=== PATIENT | female | born 1990 | race Caucasian/White ===

== ENCOUNTER 2021-10-06 01:34 | Inpatient (IN) ==
[~2021-10-06 01:34] MED LIST: Azithromycin 500 MG in 0.9 % Sodium Chloride 250 ML IVPB PRN; Famotidine 20 MG/2 ML VIAL IVP PRN; Lidocaine 1% 20 ML MDV INFILT PRN; Metoclopramide 10 MG/2 ML VIAL IVP PRN; Naloxone 0.4 MG/ML INJ IVP PRN; Ondansetron 4 MG/2 ML VIAL IVP PRN
[2021-10-06 02:29] LABS: Amphetamine Screen,Urine Negative ng/mL (Cutoff=1000); Barbiturate Screen,Urine Negative ng/mL (Cutoff=200); Benzodiazepines Screen,Urine Negative ng/mL (Cutoff=200); Cannabinoid Screen,Urine Negative ng/mL (Cutoff = 50); Cocaine Screen,Urine Negative ng/mL (Cutoff= 300); Opiate Screen,Urine Negative ng/mL (Cutoff=300); Phencyclidine Screen,Urine Negative ng/mL (Cutoff=25)
[2021-10-06 02:53] LABS: Basophils % 0.3 %; Hematocrit 40.5 % (35.3-44.9); Hemoglobin 13.8 g/dL (11.5-15.4); Immature Granulocytes % 0.6 % (0-4); Mean Corpuscular HGB Conc 34.1 g/dL (31.6-35.5); Red Cell Distribution Width 13.2 % (11.5-14.5)
[2021-10-06 02:54] LABS: Eosinophils # 0.1 K/mcL (0.0-0.6); Eosinophils % 0.8 %; Immature Platelets 2.7 % (1.1-6.1); Lymphocytes # 2.3 K/mcL (0.6-4.6); Lymphocytes % 16.6 %; Mean Corpuscular Hemoglobin 31.6 pg (28.0-33.3); Mean Corpuscular Volume 92.7 fL (83.0-100.0); Mean Platelet Volume 9.7 fL (9.4-12.4); Monocytes # 1.1 K/mcL (0.0-1.3); Monocytes % 7.8 %; Neutrophils # 10.2 K/mcL (1.6-8.9); Platelet Count 232 K/mcL (140-400); Red Blood Count 4.37 M/mcL (3.82-4.97); Segmented Neutrophils % 73.9 %; White Blood Count 13.8 K/mcL (4.3-11.1)
[2021-10-06 03:16] LABS: Platelet Estimate Normal (Normal)
[2021-10-06] MEDS ORDERED: EPHEDrine 50 MG/ML VIAL IVP PRN (03:19)
[2021-10-06] MEDS ORDERED: Epidural Premix (fent/bupiv) 110 ML EP SCH (03:30)
[2021-10-06] MEDS ORDERED: Ropivacaine/PF 0.2% 20 ML VIAL EP ONE (07:30)
[2021-10-06] MEDS ORDERED: *HR* FentaNYL (PF) 100 MCG/2 ML VIAL EP ONE (07:30)
[2021-10-06] MEDS ORDERED: Ringers Solution, Lactated 1,000 ML IVC SCH (15:15)
[2021-10-06] MEDS ORDERED: Oxytocin 30 UNIT/503 ML BAG IVC SCH (15:15)
[2021-10-06] MEDS: *HR* Nalbuphine 10 MG/ML AMPUL IV PRN ×2 (16:22→20:58)
[2021-10-07] MEDS ORDERED: *HR* FentaNYL (PF) 100 MCG/2 ML VIAL ONE (01:03)
[2021-10-07] MEDS ORDERED: Ropivacaine/PF 0.2% 20 ML VIAL ONE (01:03)
[2021-10-07] MEDS ORDERED: Lanolin 7 G OINT...G. TP PRN (09:37)
[2021-10-07] MEDS ORDERED: Oxytocin 30 UNIT/503 ML BAG IVC SCH (09:37)
[2021-10-07] MEDS ORDERED: NON-FORMULARY MEDICATION 1 EACH EACH (Prenatal One Tablet 1 TAB) PO SCH (09:37)
[2021-10-07] MEDS ORDERED: Benzocaine/Menthol 56 GM AEROSOL SPRAY TP PRN (09:37)
[2021-10-07] MEDS ORDERED: Ondansetron ODT 4 MG TAB.RAPDIS SL PRN (09:37)
[2021-10-07] MEDS: Prenatal Vit/FA 1 EACH TABLET PO SCH (10:58)
[2021-10-07] MEDS: Ibuprofen 600 MG TABLET PO SCH ×2 (10:58→17:19)
[2021-10-07] MEDS: Acetaminophen 325 MG TABLET PO SCH ×2 (10:59→17:18)
[2021-10-08] MEDS: Acetaminophen 325 MG TABLET PO SCH ×2 (03:29→09:19)
[2021-10-08] MEDS: Ibuprofen 600 MG TABLET PO SCH ×2 (03:29→09:18)
[2021-10-08 05:51] LABS: Basophils # 0.1 K/mcL (0.0-0.2); Basophils % 0.3 %; Eosinophils # 0.1 K/mcL (0.0-0.6); Eosinophils % 0.9 %; Hematocrit 31.8 % (35.3-44.9); Immature Granulocytes % 0.6 % (0-4); Lymphocytes % 19.8 %; Mean Corpuscular HGB Conc 33.6 g/dL (31.6-35.5); Mean Corpuscular Volume 95.2 fL (83.0-100.0); Mean Platelet Volume 9.4 fL (9.4-12.4); Monocytes # 1.5 K/mcL (0.0-1.3); Monocytes % 10.1 %; Neutrophils # 10.4 K/mcL (1.6-8.9); Platelet Count 188 K/mcL (140-400); Red Blood Count 3.34 M/mcL (3.82-4.97); Red Cell Distribution Width 13.6 % (11.5-14.5); Segmented Neutrophils % 68.3 %; White Blood Count 15.2 K/mcL (4.3-11.1)
[2021-10-08 05:54] LABS: Hemoglobin 10.7 g/dL (11.5-15.4)
[2021-10-08 07:03] VITALS: BP 97/61; PULSE 73; TEMP 98.1; O2SAT 99
[2021-10-08] MEDS: Prenatal Vit/FA 1 EACH TABLET PO SCH (08:26)
== END 2021-10-08 11:15 | disposition home or self-care (01) | DRG 807 ==
LOC: 1NENULAB → 1NENUOBS 10-07 08:58
PROVIDERS: ADMIT Advanced Practice Midwife; ATTEND Advanced Practice Midwife